=== PATIENT | female | born 1940 | race Caucasian/White ===

== ENCOUNTER 2021-10-22 14:32 | Observation (INO) | payer MEDICARE, OTHER ==
[2021-10-22 15:54] LABS: BLOOD UREA NITROGEN,BUN 30 mg/dL (7.0-18.0); CARBON DIOXIDE,CO2 22.8 mmol/L (21.0-32.0); CHLORIDE,CL 99 mmol/L (98-107); GLUCOSE RANDOM 114 mg/dL (74-106); POTASSIUM,K 4.7 mmol/L (3.5-5.1); SODIUM,NA 134 mmol/L (136-145)
[2021-10-22] MEDS ORDERED: Nitroglycerin 0.4 MG Tab.SL SL ONE (16:53)
[2021-10-22] MEDS: Aspirin 81 MG Tab.Chew PO SCH (17:05)
[2021-10-22] MEDS: Acetaminophen 325 MG Tab PO PRN (20:32)
[2021-10-23] MEDS: Acetaminophen 325 MG Tab PO PRN ×4 (00:56→13:31)
[2021-10-23] MEDS ORDERED: Omeprazole 20 MG Cap.CR PO SCH (07:30)
[2021-10-23] MEDS: Aspirin 81 MG Tab.Chew PO SCH (08:23)
[2021-10-23 08:25] LABS: CARBON DIOXIDE,CO2 25.1 mmol/L (21.0-32.0); POTASSIUM,K 4.6 mmol/L (3.5-5.1)
[2021-10-23] MEDS ORDERED: Atenolol 50 MG Tab PO SCH (09:00)
[2021-10-23] MEDS ORDERED: Warfarin 2.5 MG Tab PO SCH ×2 (14:00)
[2021-10-23] MEDS ORDERED: Warfarin Sliding Scale PO SCH (14:00)
[2021-10-27] MEDS ORDERED: Warfarin 2.5 MG Tab PO SCH (14:00)
== END 2021-10-23 15:45 | disposition home health service (06) ==
LOC: MW.ED 14:32 → MW.MS 17:02
PROVIDERS: ADMIT Internal Medicine; ATTEND Internal Medicine
DX: I48.91 Unspecified atrial fibrillation (principal); I25.10 Atherosclerotic heart disease of native coronary artery without angina pectoris; I25.2 Old myocardial infarction; K21.9 Gastro-esophageal reflux disease without esophagitis; M35.00 Sjogren syndrome, unspecified; Z88.8 Allergy status to other drugs, medicaments and biological substances; Z79.899 Other long term (current) drug therapy; Z79.01 Long term (current) use of anticoagulants; Z20.822 Contact with and (suspected) exposure to COVID-19
CPT/HCPCS: 36415; 71045; 80048; 80053; 81001; 83735; 83880; 84484; 85025; 85610; 93005; 93306; 99285; A9270; G0378; U0002; 93010; 99284

== ENCOUNTER 2022-12-01 12:57 | Inpatient (IN) | payer MEDICARE, OTHER ==
[2022-12-01 15:01] LABS: CARBON DIOXIDE,CO2 22.3 mmol/L (21.0-32.0); POTASSIUM,K 3.8 mmol/L (3.5-5.1)
[2022-12-01] MEDS ORDERED: Sodium Chloride 0.9% 1,000 ML IV ONE (16:25)
[2022-12-01 20:15] LABS: CORONAVIRUS COVID-19 NAA NEGATIVE (NEGATIVE); INFLUENZA A NAA NEGATIVE (NEGATIVE); INFLUENZA B NAA NEGATIVE (NEGATIVE)
[2022-12-01] MEDS ORDERED: cefTRIAXone 1 GM in Sodium Chloride 0.9% 50 ML IV SCH (21:45)
[2022-12-01] MEDS ORDERED: Enoxaparin 30 MG/0.3 ML Syringe SUBCUT SCH (22:00)
[2022-12-01] MEDS ORDERED: Sodium Chloride 0.9% 1,000 ML IV SCH ×2 (22:00→23:45)
[2022-12-01] MEDS ORDERED: Sodium Chloride 0.9% 50 ML ONE (22:18)
[2022-12-01] MEDS: Sodium Chloride 0.9% 1,000 ML IV SCH (23:44)
[2022-12-01] MEDS: Piperacillin/Tazobactam 3.375 GM in Sodium Chloride 0.9% 50 ML IV SCH (23:49)
[2022-12-02] MEDS ORDERED: Sodium Chloride 0.9% 1,000 ML IV SCH (00:45)
[2022-12-02] MEDS ORDERED: oxyCODONE 5 MG Tab ONE (03:11)
[2022-12-02] MEDS ORDERED: Sodium Chloride 0.9% 50 ML ONE (04:45)
[2022-12-02] MEDS: Piperacillin/Tazobactam 3.375 GM in Sodium Chloride 0.9% 50 ML IV SCH (04:56)
[2022-12-02] MEDS: Omeprazole 20 MG Cap.CR PO SCH (06:50)
[2022-12-02] MEDS: Sodium Chloride 0.9% 1,000 ML IV SCH ×2 (06:53→16:26)
[2022-12-02 06:59] LABS: CARBON DIOXIDE,CO2 19.9 mmol/L (21.0-32.0); POTASSIUM,K 4.2 mmol/L (3.5-5.1)
[2022-12-02] MEDS ORDERED: Sodium Chloride 0.9% 1,000 ML IV ONE (07:52)
[2022-12-02] MEDS: Acetaminophen 325 MG Tab PO PRN (08:14)
[2022-12-02] MEDS: CEVIMELINE 30 MG PO SCH ×3 (09:25→13:54)
[2022-12-02] MEDS ORDERED: Norepinephrine Bit/D5W Premix 250 ML IV SCH (10:15)
[2022-12-02] MEDS ORDERED: Piperacillin/Tazobactam 2.25 GM in Sodium Chloride 0.9% 50 ML IV SCH (12:00)
[2022-12-02] MEDS: Meropenem Premix 50 ML IV SCH (12:26)
[2022-12-02] MEDS ORDERED: Warfarin 2.5 MG Tab PO ONE (14:00)
[2022-12-02] MEDS: Warfarin Sliding Scale PO SCH (14:05)
[2022-12-02] MEDS: oxyCODONE 5 MG Tab PO PRN (17:20)
[2022-12-03] MEDS: CEVIMELINE 30 MG PO SCH ×4 (00:15→22:00)
[2022-12-03] MEDS: Meropenem Premix 50 ML IV SCH ×2 (00:17→11:17)
[2022-12-03] MEDS: Sodium Chloride 0.9% 1,000 ML IV SCH ×2 (00:17→08:45)
[2022-12-03] MEDS: oxyCODONE 5 MG Tab PO PRN ×3 (04:52→22:00)
[2022-12-03 07:19] LABS: CARBON DIOXIDE,CO2 16.7 mmol/L (21.0-32.0)
[2022-12-03] MEDS: Omeprazole 20 MG Cap.CR PO SCH (08:45)
[2022-12-03] MEDS: Warfarin Sliding Scale PO SCH (13:43)
[2022-12-03] MEDS ORDERED: Metoprolol Tartrate 5 MG/5 ML SDV IVPUSH ONE (16:30)
[2022-12-04] MEDS: Meropenem Premix 50 ML IV SCH ×3 (00:35→23:31)
[2022-12-04] MEDS: CEVIMELINE 30 MG PO SCH ×3 (06:46→23:34)
[2022-12-04] MEDS: Omeprazole 20 MG Cap.CR PO SCH (06:46)
[2022-12-04 06:55] LABS: CARBON DIOXIDE,CO2 17.8 mmol/L (21.0-32.0); POTASSIUM,K 4.2 mmol/L (3.5-5.1)
[2022-12-04] MEDS: oxyCODONE 5 MG Tab PO PRN ×2 (09:23→20:23)
[2022-12-04] MEDS: Lidocaine 5% 700 MG Patch TRDERM SCH (12:15)
[2022-12-04] MEDS: Metoprolol Tartrate 25 MG Tab PO SCH ×2 (12:17→20:23)
[2022-12-04] MEDS: Warfarin Sliding Scale PO SCH (13:32)
[2022-12-04] MEDS: Acetaminophen 325 MG Tab PO PRN (20:27)
[2022-12-05] MEDS: CEVIMELINE 30 MG PO SCH ×3 (05:42→21:55)
[2022-12-05 07:03] LABS: CARBON DIOXIDE,CO2 19.8 mmol/L (21.0-32.0); POTASSIUM,K 4.3 mmol/L (3.5-5.1)
[2022-12-05] MEDS: Omeprazole 20 MG Cap.CR PO SCH (07:17)
[2022-12-05] MEDS: Metoprolol Tartrate 25 MG Tab PO SCH ×2 (08:08→21:56)
[2022-12-05] MEDS: oxyCODONE 5 MG Tab PO PRN ×3 (08:12→20:01)
[2022-12-05] MEDS: Lidocaine 5% 700 MG Patch TRDERM SCH (11:06)
[2022-12-05] MEDS: Meropenem Premix 50 ML IV SCH ×2 (11:06→23:51)
[2022-12-05] MEDS: Acetaminophen 325 MG Tab PO PRN ×2 (12:13→23:51)
[2022-12-05] MEDS ORDERED: Warfarin 2.5 MG Tab PO ONE (14:00)
[2022-12-05] MEDS: Warfarin Sliding Scale PO SCH (14:10)
[2022-12-05] MEDS: Metoprolol Tartrate 5 MG/5 ML SDV IVPUSH PRN (20:20)
[2022-12-05] MEDS: cefTRIAXone 1 GM in Sodium Chloride 0.9% 50 ML IV SCH (22:04)
[2022-12-06] MEDS: oxyCODONE 5 MG Tab PO PRN ×5 (00:02→23:05)
[2022-12-06] MEDS: CEVIMELINE 30 MG PO SCH ×3 (06:25→21:03)
[2022-12-06] MEDS: Omeprazole 20 MG Cap.CR PO SCH ×2 (06:26→06:34)
[2022-12-06 06:44] LABS: CARBON DIOXIDE,CO2 20.7 mmol/L (21.0-32.0); POTASSIUM,K 4.6 mmol/L (3.5-5.1)
[2022-12-06] MEDS: Metoprolol Tartrate 25 MG Tab PO SCH ×2 (08:11→21:04)
[2022-12-06] MEDS: Lidocaine 5% 700 MG Patch TRDERM SCH (11:47)
[2022-12-06] MEDS: Meropenem Premix 50 ML IV SCH ×2 (12:09→23:06)
[2022-12-06] MEDS ORDERED: Warfarin 2.5 MG Tab PO ONE (14:00)
[2022-12-06] MEDS: Furosemide 20 MG Tab PO SCH (14:25)
[2022-12-06] MEDS: Warfarin Sliding Scale PO SCH (14:27)
[2022-12-06] MEDS: Acetaminophen 325 MG Tab PO PRN ×2 (18:01→23:06)
[2022-12-06] MEDS: cefTRIAXone 1 GM in Sodium Chloride 0.9% 50 ML IV SCH (23:06)
[2022-12-07] MEDS: Omeprazole 20 MG Cap.CR PO SCH ×2 (06:26→06:30)
[2022-12-07] MEDS: CEVIMELINE 30 MG PO SCH ×3 (06:27→22:55)
[2022-12-07 06:34] LABS: CARBON DIOXIDE,CO2 23.4 mmol/L (21.0-32.0); POTASSIUM,K 4.5 mmol/L (3.5-5.1)
[2022-12-07] MEDS: oxyCODONE 5 MG Tab PO PRN (08:50)
[2022-12-07] MEDS: Metoprolol Tartrate 25 MG Tab PO SCH ×2 (08:52→21:10)
[2022-12-07] MEDS: Furosemide 20 MG Tab PO SCH ×2 (08:52→21:10)
[2022-12-07] MEDS: Lidocaine 5% 700 MG Patch TRDERM SCH (11:05)
[2022-12-07] MEDS: oxyCODONE ER 10 MG TAB.ER PO SCH ×2 (11:08→21:12)
[2022-12-07] MEDS: Warfarin Sliding Scale PO SCH (13:48)
[2022-12-07] MEDS ORDERED: Warfarin 2 MG Tab PO ONE (14:00)
[2022-12-07] MEDS: Metoprolol Tartrate 5 MG/5 ML SDV IVPUSH PRN (17:14)
[2022-12-07] MEDS: cefTRIAXone 2 GM in Premix Bag 1 BAG IV SCH (17:24)
[2022-12-07] MEDS ORDERED: Magnesium Sulfate/Water 2 GM in Premix Bag 1 BAG IV ONE ×2 (20:03→21:00)
[2022-12-08] MEDS: Omeprazole 20 MG Cap.CR PO SCH ×2 (06:12→09:48)
[2022-12-08] MEDS: CEVIMELINE 30 MG PO SCH ×3 (06:12→21:07)
[2022-12-08] MEDS: Acetaminophen 325 MG Tab PO PRN (06:14)
[2022-12-08 06:36] LABS: CARBON DIOXIDE,CO2 27.7 mmol/L (21.0-32.0); POTASSIUM,K 4.3 mmol/L (3.5-5.1)
[2022-12-08] MEDS: Furosemide 20 MG Tab PO SCH ×2 (08:11→14:26)
[2022-12-08] MEDS: Metoprolol Tartrate 25 MG Tab PO SCH ×2 (08:12→21:10)
[2022-12-08] MEDS: oxyCODONE ER 10 MG TAB.ER PO SCH ×2 (08:13→21:09)
[2022-12-08] MEDS: Acetaminophen 325 MG Tab PO SCH ×3 (10:02→21:14)
[2022-12-08] MEDS: Lidocaine 5% 700 MG Patch TRDERM SCH (10:48)
[2022-12-08] MEDS ORDERED: Warfarin 2 MG Tab PO ONE (14:00)
[2022-12-08] MEDS: LYSINE HCL 1000 MG PO SCH ×2 (14:25→21:15)
[2022-12-08] MEDS: Warfarin Sliding Scale PO SCH (14:44)
[2022-12-08] MEDS: cefTRIAXone 2 GM in Premix Bag 1 BAG IV SCH (16:42)
[2022-12-09] MEDS: Acetaminophen 325 MG Tab PO SCH ×4 (04:55→21:36)
[2022-12-09] MEDS: LYSINE HCL 1000 MG PO SCH ×3 (06:26→21:39)
[2022-12-09] MEDS: CEVIMELINE 30 MG PO SCH ×3 (06:26→21:39)
[2022-12-09] MEDS: Omeprazole 20 MG Cap.CR PO SCH ×2 (06:27→08:42)
[2022-12-09 07:27] LABS: CARBON DIOXIDE,CO2 27.3 mmol/L (21.0-32.0); POTASSIUM,K 4.2 mmol/L (3.5-5.1)
[2022-12-09] MEDS: Furosemide 20 MG Tab PO SCH (08:42)
[2022-12-09] MEDS: Metoprolol Tartrate 25 MG Tab PO SCH ×2 (08:43→21:37)
[2022-12-09] MEDS: oxyCODONE ER 10 MG TAB.ER PO SCH ×2 (08:44→21:36)
[2022-12-09] MEDS: Lidocaine 5% 700 MG Patch TRDERM SCH (12:18)
[2022-12-09] MEDS ORDERED: Warfarin 2.5 MG Tab PO SCH (14:00)
[2022-12-09] MEDS: Warfarin Sliding Scale PO SCH (14:17)
[2022-12-09] MEDS: cefTRIAXone 2 GM in Premix Bag 1 BAG IV SCH (16:21)
[2022-12-10] MEDS: Acetaminophen 325 MG Tab PO SCH ×4 (04:01→22:07)
[2022-12-10 06:17] LABS: CARBON DIOXIDE,CO2 25.3 mmol/L (21.0-32.0); POTASSIUM,K 4.3 mmol/L (3.5-5.1)
[2022-12-10] MEDS: CEVIMELINE 30 MG PO SCH ×3 (06:56→22:07)
[2022-12-10] MEDS: Omeprazole 20 MG Cap.CR PO SCH (06:56)
[2022-12-10] MEDS: LYSINE HCL 1000 MG PO SCH ×3 (06:56→22:07)
[2022-12-10] MEDS: Metoprolol Tartrate 25 MG Tab PO SCH ×2 (08:51→20:47)
[2022-12-10] MEDS: oxyCODONE ER 10 MG TAB.ER PO SCH ×2 (08:55→20:48)
[2022-12-10] MEDS: Furosemide 20 MG Tab PO SCH (08:55)
[2022-12-10] MEDS: Lidocaine 5% 700 MG Patch TRDERM SCH (11:22)
[2022-12-10] MEDS: Warfarin Sliding Scale PO SCH (13:58)
[2022-12-10] MEDS ORDERED: Warfarin 2.5 MG Tab PO SCH (14:00)
[2022-12-10] MEDS ORDERED: cefTRIAXone 2 GM in Sodium Chloride 0.9% 100 ML IV SCH (16:15)
[2022-12-11] MEDS: Acetaminophen 325 MG Tab PO SCH ×2 (04:08→09:14)
[2022-12-11] MEDS: Omeprazole 20 MG Cap.CR PO SCH (06:40)
[2022-12-11] MEDS: CEVIMELINE 30 MG PO SCH (06:41)
[2022-12-11] MEDS: LYSINE HCL 1000 MG PO SCH (06:41)
[2022-12-11 06:44] LABS: CARBON DIOXIDE,CO2 23.2 mmol/L (21.0-32.0); POTASSIUM,K 4.4 mmol/L (3.5-5.1)
[2022-12-11] MEDS: oxyCODONE ER 10 MG TAB.ER PO SCH (09:14)
[2022-12-11] MEDS: Furosemide 20 MG Tab PO SCH (09:15)
[2022-12-11] MEDS: Metoprolol Tartrate 25 MG Tab PO SCH (09:15)
[2022-12-11] MEDS: Lidocaine 5% 700 MG Patch TRDERM SCH (11:17)
[2022-12-11] MEDS ORDERED: Warfarin 2 MG, Warfarin 1 MG PO SCH ×2 (14:00)
== END 2022-12-11 13:00 | disposition home health service (06) | DRG 871 ==
LOC: MW.ED 12:57 → MW.MS 18:52 → MW.ICU 20:27 → OBSVTOIN 21:54 → MW.MS 22:57 → MW.ICU 12-02 11:47 → MW.MS 12-05 13:45
PROVIDERS: ADMIT Internal Medicine; ATTEND Internal Medicine
DX: A41.51 Sepsis due to Escherichia coli [E. coli] (principal); N17.0 Acute kidney failure with tubular necrosis; R65.21 Severe sepsis with septic shock; N30.00 Acute cystitis without hematuria; E86.0 Dehydration; K21.9 Gastro-esophageal reflux disease without esophagitis; I25.10 Atherosclerotic heart disease of native coronary artery without angina pectoris; G89.29 Other chronic pain; M54.50 Low back pain, unspecified; Z91.041 Radiographic dye allergy status; M19.90 Unspecified osteoarthritis, unspecified site; M35.00 Sjogren syndrome, unspecified; Z87.891 Personal history of nicotine dependence; Z20.822 Contact with and (suspected) exposure to COVID-19; I10 Essential (primary) hypertension; I48.91 Unspecified atrial fibrillation; Z79.01 Long term (current) use of anticoagulants; Z79.899 Other long term (current) drug therapy; I25.2 Old myocardial infarction; Z59.00 Homelessness unspecified
CPT/HCPCS: 0240U; 36415; 71045; 71045-26; 74176; 74176-26; 80048; 81001; 82550; 83605; 83735; 84100; 85025; 85610; 87040; 87077; 87086; 87088; 87154; 87186; 96360; 97110-GP; 97116-GP; 97163-GP; 97530-GP; 99222; 99231; 99232; 99239; 99285; 99285-25; A9270-GY; J0696; J2185; J2543; J3475; J3490; J7030; J7050

== ENCOUNTER 2023-10-20 11:26 | Emergency (ER) | payer MEDICARE, OTHER ==
[2023-10-20] MEDS ORDERED: Sodium Chloride 0.9% Inhalation Soln 3 ML Neb INH PRN (11:56)
[2023-10-20] MEDS: Dexamethasone 10 MG/ML SDV IVPUSH ONE (12:14)
[2023-10-20] MEDS: Racepinephrine 2.25% 0.5 ML Neb Soln NEB ONE (12:14)
[2023-10-20 12:15] LABS: BASOPHILS ABSOLUTE AUTO 0.03 K/uL (0.00-0.20); BASOPHILS PERCENT AUTO 0.3 % (0.0-1.0); HEMATOCRIT 33.1 % (37.0-47.0); HEMOGLOBIN 11.2 g/dL (12.0-16.0); IMMATURE GRAN ABSOLUTE AUTO 0.16 K/uL (0.00-0.05); IMMATURE GRAN PERCENT AUTO 1.4 % (0.0-0.4); LYMPHOCYTES ABSOLUTE AUTO 0.72 K/uL (1.00-4.80); LYMPHOCYTES PERCENT AUTO 6.1 % (24.0-44.0); MEAN CORPUSCULAR HEMOGLOBIN 30.6 pg (28.0-32.0); MEAN CORPUSCULAR HGB CONC 33.8 g/dL (32.0-36.0); MEAN CORPUSCULAR VOLUME 90.4 fL (83.0-99.0); MEAN PLATELET VOLUME 8.8 fL (9.4-12.3); MONOCYTES ABSOLUTE AUTO 1.16 K/uL (0.00-0.80); MONOCYTES PERCENT AUTO 9.9 % (0.0-8.0); NEUTROPHILS ABSOLUTE AUTO 9.65 K/uL (1.80-7.70); NEUTROPHILS PERCENT AUTO 82.3 % (41.0-71.0); PLATELET COUNT,PLT 192 K/uL (150-400); RED BLOOD CELL COUNT 3.66 M/uL (4.10-5.30); WHITE BLOOD CELL COUNT,WBC 11.72 K/uL (3.9-11.3)
[2023-10-20] MEDS: Sodium Chloride 0.9% 2.5 ML Syringe FLUSH PRN (12:15)
[2023-10-20] MEDS: Dexamethasone 4 MG Tab PO ONE (12:15)
[2023-10-20] MEDS: Sodium Chloride 0.9% 10 ML Syringe FLUSH PRN (12:15)
[2023-10-20 12:29] LABS: INR 3.07 (0.86-1.11); PTT,PARTIAL THROMBOPLSTIN TIME 58.4 SEC (23.9-30.7)
[2023-10-20 12:41] LABS: A/G RATIO 0.6 (0.9-1.6); ALBUMIN 3.3 g/dL (3.4-5.0); BILIRUBIN TOTAL 1.1 mg/dL (0.2-1.0); CALCIUM 9.1 mg/dL (8.5-10.1); CARBON DIOXIDE,CO2 25.3 mmol/L (21.0-32.0); CREATININE 1.5 mg/dL (0.6-1.0); EST CRCL DRUG DOSING (CG) 23.09 mL/min; POTASSIUM,K 3.7 mmol/L (3.5-5.1); PROTEIN TOTAL,TP 8.6 g/dL (6.4-8.2)
[2023-10-20] MEDS ORDERED: Racepinephrine 2.25% 0.5 ML Neb Soln ONE (14:47)
== END 2023-10-20 16:01 ==
LOC: MW.ED 11:26
DX: R22.1 Localized swelling, mass and lump, neck (principal); M35.0C Sjogren syndrome with dental involvement; I48.11 Longstanding persistent atrial fibrillation; Z91.041 Radiographic dye allergy status; Z79.01 Long term (current) use of anticoagulants; Z79.899 Other long term (current) drug therapy; Z90.49 Acquired absence of other specified parts of digestive tract; Z90.710 Acquired absence of both cervix and uterus
CPT/HCPCS: 36415; 80053; 85025; 85610; 85730; 86850; 86900; 86901; 94640; 96374; 99285; J1100; J3490; 99291

== ENCOUNTER 2024-02-28 16:21 | Emergency (ER) | payer MEDICARE, OTHER ==
[2024-02-28 16:44] LABS: BASOPHILS ABSOLUTE AUTO 0.04 K/uL (0.00-0.20); BASOPHILS PERCENT AUTO 0.8 % (0.0-1.0); EOSINOPHILS ABSOLUTE AUTO 0.17 K/uL (0.00-0.45); EOSINOPHILS PERCENT AUTO 3.3 % (0.0-6.0); HEMATOCRIT 36.4 % (37.0-47.0); HEMOGLOBIN 11.7 g/dL (12.0-16.0); IMMATURE GRAN PERCENT AUTO 1.9 % (0.0-0.4); LYMPHOCYTES ABSOLUTE AUTO 0.73 K/uL (1.00-4.80); LYMPHOCYTES PERCENT AUTO 14.1 % (24.0-44.0); MEAN CORPUSCULAR HEMOGLOBIN 27.6 pg (28.0-32.0); MEAN CORPUSCULAR HGB CONC 32.1 g/dL (32.0-36.0); MEAN CORPUSCULAR VOLUME 85.8 fL (83.0-99.0); MEAN PLATELET VOLUME 8.7 fL (9.4-12.3); MONOCYTES ABSOLUTE AUTO 0.52 K/uL (0.00-0.80); MONOCYTES PERCENT AUTO 10.1 % (0.0-8.0); NEUTROPHILS PERCENT AUTO 69.8 % (41.0-71.0); PLATELET COUNT,PLT 316 K/uL (150-400); RED BLOOD CELL COUNT 4.24 M/uL (4.10-5.30); WHITE BLOOD CELL COUNT,WBC 5.16 K/uL (3.9-11.3)
[2024-02-28 16:59] LABS: INR 2.61 (0.86-1.11); PTT,PARTIAL THROMBOPLSTIN TIME 43.7 SEC (23.9-30.7)
[2024-02-28 17:15] LABS: A/G RATIO 0.5 (0.9-1.6); ALANINE AMINOTRANSFERASE,ALT 13 IU/L (14-63); ALBUMIN 2.6 g/dL (3.4-5.0); ALKALINE PHOSPHATASE 59 U/L (46-116); ASPARTATE AMNIOTRANSFERASE,AST 20 IU/L (15-37); BILIRUBIN TOTAL 0.4 mg/dL (0.2-1.0); BLOOD UREA NITROGEN,BUN 31 mg/dL (7.0-18.0); CALCIUM 8.7 mg/dL (8.5-10.1); CARBON DIOXIDE,CO2 27.1 mmol/L (21.0-32.0); CHLORIDE,CL 99 mmol/L (98-107); GLUCOSE RANDOM 118 mg/dL (74-106); LIPASE 69 U/L (16-77); MAGNESIUM 2.5 mg/dL (1.8-2.4); POTASSIUM,K 4.1 mmol/L (3.5-5.1); SODIUM,NA 135 mmol/L (136-145)
[2024-02-28 17:16] LABS: ESTIMATED GFR 24 mL/min (>60)
== END 2024-02-28 19:05 | disposition home or self-care (01) ==
LOC: MW.ED 16:21
DX: R07.9 Chest pain, unspecified (principal); Z91.041 Radiographic dye allergy status; Z79.01 Long term (current) use of anticoagulants; Z79.899 Other long term (current) drug therapy; Z75.8 Other problems related to medical facilities and other health care; Z90.49 Acquired absence of other specified parts of digestive tract; Z90.710 Acquired absence of both cervix and uterus
CPT/HCPCS: 36415; 71045; 71045-26; 80053; 83690; 83735; 84484; 85025; 85610; 85730; 93005; 99285

== ENCOUNTER 2024-04-28 16:45 | Observation (INO) | payer MEDICARE, OTHER ==
[2024-04-28 17:16] LABS: BASOPHILS ABSOLUTE AUTO 0.02 K/uL (0.00-0.20); BASOPHILS PERCENT AUTO 0.2 % (0.0-1.0); HEMATOCRIT 32.6 % (37.0-47.0); HEMOGLOBIN 11.1 g/dL (12.0-16.0); IMMATURE GRAN PERCENT AUTO 2.5 % (0.0-0.4); LYMPHOCYTES ABSOLUTE AUTO 0.58 K/uL (1.00-4.80); LYMPHOCYTES PERCENT AUTO 7.2 % (24.0-44.0); MEAN CORPUSCULAR HEMOGLOBIN 29.8 pg (28.0-32.0); MEAN CORPUSCULAR VOLUME 87.4 fL (83.0-99.0); MEAN PLATELET VOLUME 8.8 fL (9.4-12.3); MONOCYTES ABSOLUTE AUTO 0.72 K/uL (0.00-0.80); MONOCYTES PERCENT AUTO 8.9 % (0.0-8.0); NEUTROPHILS ABSOLUTE AUTO 6.55 K/uL (1.80-7.70); NEUTROPHILS PERCENT AUTO 81.2 % (41.0-71.0); PLATELET COUNT,PLT 245 K/uL (150-400); RED BLOOD CELL COUNT 3.73 M/uL (4.10-5.30); WHITE BLOOD CELL COUNT,WBC 8.07 K/uL (3.9-11.3)
[2024-04-28 17:23] LABS: INR 2.33 (0.86-1.11)
[2024-04-28 17:39] LABS: ALBUMIN 2.9 g/dL (3.4-5.0); BILIRUBIN TOTAL 0.7 mg/dL (0.2-1.0); CALCIUM 9.1 mg/dL (8.5-10.1); CARBON DIOXIDE,CO2 26.9 mmol/L (21.0-32.0); CREATININE 1.7 mg/dL (0.6-1.0); EST CRCL DRUG DOSING (CG) 20.01 mL/min; POTASSIUM,K 4.1 mmol/L (3.5-5.1); PROTEIN TOTAL,TP 8.2 g/dL (6.4-8.2)
[2024-04-28 17:44] LABS: A/G RATIO 0.6 (0.9-1.6)
[2024-04-28] MEDS ORDERED: Naloxone 0.4 MG/ML SDV IVPUSH PRN (18:03)
[2024-04-28] MEDS: Sodium Chloride 0.9% 500 ML IV SCH (18:17)
[2024-04-28] MEDS: Morphine 2 MG/ML SYRINGE IVPUSH ONE (18:19)
[2024-04-28] MEDS: Sodium Chloride 0.9% 10 ML Syringe FLUSH PRN (19:16)
[2024-04-28] MEDS: Sodium Chloride 0.9% 2.5 ML Syringe FLUSH PRN (19:16)
[2024-04-28] MEDS: Furosemide 40 MG/4 ML VIAL IVPUSH ONE (19:16)
[2024-04-29 06:45] LABS: INR 2.44 (0.86-1.11)
[2024-04-29 07:43] LABS: A/G RATIO 0.6 (0.9-1.6); ALBUMIN 2.7 g/dL (3.4-5.0); BILIRUBIN TOTAL 0.8 mg/dL (0.2-1.0); CALCIUM 8.9 mg/dL (8.5-10.1); CREATININE 1.6 mg/dL (0.6-1.0); EST CRCL DRUG DOSING (CG) 21.26 mL/min; POTASSIUM,K 3.7 mmol/L (3.5-5.1); PROTEIN TOTAL,TP 7.6 g/dL (6.4-8.2)
[2024-04-29 07:47] LABS: BASOPHILS ABSOLUTE AUTO 0.04 K/uL (0.00-0.20); BASOPHILS PERCENT AUTO 0.5 % (0.0-1.0); HEMATOCRIT 31.6 % (37.0-47.0); HEMOGLOBIN 10.6 g/dL (12.0-16.0); IMMATURE GRAN ABSOLUTE AUTO 0.17 K/uL (0.00-0.05); IMMATURE GRAN PERCENT AUTO 2.3 % (0.0-0.4); LYMPHOCYTES ABSOLUTE AUTO 0.58 K/uL (1.00-4.80); LYMPHOCYTES PERCENT AUTO 7.7 % (24.0-44.0); MEAN CORPUSCULAR HEMOGLOBIN 29.4 pg (28.0-32.0); MEAN CORPUSCULAR HGB CONC 33.5 g/dL (32.0-36.0); MEAN CORPUSCULAR VOLUME 87.5 fL (83.0-99.0); MONOCYTES ABSOLUTE AUTO 0.77 K/uL (0.00-0.80); MONOCYTES PERCENT AUTO 10.2 % (0.0-8.0); NEUTROPHILS ABSOLUTE AUTO 5.99 K/uL (1.80-7.70); NEUTROPHILS PERCENT AUTO 79.3 % (41.0-71.0); PLATELET COUNT,PLT 216 K/uL (150-400); RED BLOOD CELL COUNT 3.61 M/uL (4.10-5.30); WHITE BLOOD CELL COUNT,WBC 7.55 K/uL (3.9-11.3)
[2024-04-29] MEDS: Pantoprazole 40 MG Tab.CR PO SCH (08:00)
[2024-04-29] MEDS: oxyCODONE ER 10 MG TAB.ER PO SCH (09:43)
[2024-04-29] MEDS ORDERED: Warfarin 2.5 MG Tab PO SCH (14:00)
[2024-04-29] MEDS ORDERED: Warfarin Sliding Scale PO SCH (14:00)
[2024-05-01] MEDS ORDERED: Warfarin 2.5 MG Tab PO SCH (14:00)
== END 2024-04-29 13:12 | disposition home or self-care (01) ==
LOC: MW.ED 16:45 → MW.MS 19:20
PROVIDERS: ADMIT Internal Medicine; ATTEND Internal Medicine
DX: I50.33 Acute on chronic diastolic (congestive) heart failure (principal); Z87.891 Personal history of nicotine dependence; Z79.899 Other long term (current) drug therapy; Z91.041 Radiographic dye allergy status
CPT/HCPCS: 36415; 71045; 71250; 80053; 83690; 83880; 84484; 85025; 85610; 93005; 96361; 96374; 96375; 99285; A9270; J1940; J2270; J3490; J7040; 99284; G0378

== ENCOUNTER 2024-05-07 23:30 | Inpatient (IN) | payer MEDICARE, OTHER ==
[2024-05-07] MEDS ORDERED: Nitroglycerin 0.4 MG Tab.SL SL PRN (23:42)
[2024-05-08 00:16] LABS: BASE EXCESS VENOUS 0.3 (-2.0-3.0); BICARBONATE,VENOUS 25 mEQ/mL (22-28); PCO2 VENOUS 37 mmHG (41-51); PH,VENOUS 7.43 (7.31-7.41); PO2 VENOUS < 30 mmHG (35-45)
[2024-05-08 00:19] LABS: BASOPHILS ABSOLUTE AUTO 0.04 K/uL (0.00-0.20); BASOPHILS PERCENT AUTO 0.4 % (0.0-1.0); HEMATOCRIT 28.8 % (37.0-47.0); HEMOGLOBIN 9.6 g/dL (12.0-16.0); IMMATURE GRAN ABSOLUTE AUTO 0.33 K/uL (0.00-0.05); IMMATURE GRAN PERCENT AUTO 3.1 % (0.0-0.4); LYMPHOCYTES ABSOLUTE AUTO 0.51 K/uL (1.00-4.80); LYMPHOCYTES PERCENT AUTO 4.7 % (24.0-44.0); MEAN CORPUSCULAR HEMOGLOBIN 29.8 pg (28.0-32.0); MEAN CORPUSCULAR HGB CONC 33.3 g/dL (32.0-36.0); MEAN CORPUSCULAR VOLUME 89.4 fL (83.0-99.0); MONOCYTES ABSOLUTE AUTO 1.01 K/uL (0.00-0.80); MONOCYTES PERCENT AUTO 9.4 % (0.0-8.0); NEUTROPHILS ABSOLUTE AUTO 8.86 K/uL (1.80-7.70); NEUTROPHILS PERCENT AUTO 82.4 % (41.0-71.0); PLATELET COUNT,PLT 287 K/uL (150-400); RED BLOOD CELL COUNT 3.22 M/uL (4.10-5.30); WHITE BLOOD CELL COUNT,WBC 10.75 K/uL (3.9-11.3)
[2024-05-08] MEDS: cefTRIAXone 2 GM in Sodium Chloride 0.9% 50 ML IV ONE (00:27)
[2024-05-08] MEDS: Sodium Chloride 0.9% 10 ML Syringe FLUSH PRN (00:28)
[2024-05-08 00:29] LABS: INR 2.26 (0.86-1.11)
[2024-05-08 00:59] LABS: A/G RATIO 0.6 (0.9-1.6); ALBUMIN 2.7 g/dL (3.4-5.0); BILIRUBIN TOTAL 0.6 mg/dL (0.2-1.0); CALCIUM 8.7 mg/dL (8.5-10.1); CARBON DIOXIDE,CO2 25.6 mmol/L (21.0-32.0); CREATININE 1.7 mg/dL (0.6-1.0); EST CRCL DRUG DOSING (CG) 20.01 mL/min; MAGNESIUM 2.5 mg/dL (1.8-2.4); POTASSIUM,K 4.3 mmol/L (3.5-5.1); PROTEIN TOTAL,TP 7.4 g/dL (6.4-8.2)
[2024-05-08] MEDS: Acetaminophen 500 MG Tab PO ONE (01:09)
[2024-05-08] MEDS: Azithromycin 500 MG in Sodium Chloride 0.9% 250 ML IV ONE (01:12)
[2024-05-08 01:21] LABS: CORONAVIRUS COVID-19 NAA NEGATIVE (NEGATIVE); INFLUENZA A NAA NEGATIVE (NEGATIVE); INFLUENZA B NAA NEGATIVE (NEGATIVE); RESPIRATORY SYNCYTIAL VIR NAA NEGATIVE (NEGATIVE)
[2024-05-08 01:22] LABS: APPEARANCE,URINE SLT CLOUDY; BILIRUBIN,URINE NEGATIVE (NEGATIVE); COLOR,URINE YELLOW; GLUCOSE,URINE NEGATIVE (NEGATIVE); KETONES,URINE NEGATIVE (NEGATIVE); LEUKOCYTE ESTERASE,URINE SMALL (NEGATIVE); NITRITE,URINE NEGATIVE (NEGATIVE); OCCULT BLOOD,URINE NEGATIVE (NEGATIVE); PROTEIN,URINE NEGATIVE (NEGATIVE); UROBILINOGEN,URINE 0.2 EU/dL (<2.0)
[2024-05-08 01:30] LABS: BACTERIA,URINE 1+ (NEGATIVE); EPITHELIAL CELLS,URINE FEW (NONE-FEW); RBC,URINE 0-2 (0-2/HPF)
[2024-05-08] MEDS ORDERED: Ondansetron 4 MG/2 ML SDV IVPUSH PRN (02:36)
[2024-05-08] MEDS ORDERED: Melatonin 3 MG Tab PO PRN (02:36)
[2024-05-08] MEDS ORDERED: Acetaminophen 650 MG Supp RECTAL PRN (02:36)
[2024-05-08] MEDS ORDERED: Albuterol/Ipratropium 3.0-0.5 MG/3 ML Neb Soln NEB PRN (02:36)
[2024-05-08] MEDS ORDERED: Polyethylene Glycol 3350 Powder 17 GM Packet PO PRN (02:36)
[2024-05-08] MEDS ORDERED: cefTRIAXone 2 GM in Sodium Chloride 0.9% 50 ML IV SCH ×2 (02:45→22:00)
[2024-05-08] MEDS ORDERED: Azithromycin 500 MG in Sodium Chloride 0.9% 250 ML IV SCH (02:45)
[2024-05-08 06:01] LABS: HEMOGLOBIN 9.2 g/dL (12.0-16.0); MEAN CORPUSCULAR HEMOGLOBIN 29.1 pg (28.0-32.0); MEAN CORPUSCULAR HGB CONC 32.9 g/dL (32.0-36.0); MEAN CORPUSCULAR VOLUME 88.6 fL (83.0-99.0); MEAN PLATELET VOLUME 9.3 fL (9.4-12.3); PLATELET COUNT,PLT 255 K/uL (150-400); RED BLOOD CELL COUNT 3.16 M/uL (4.10-5.30); WHITE BLOOD CELL COUNT,WBC 10.01 K/uL (3.9-11.3)
[2024-05-08 06:14] LABS: CARBON DIOXIDE,CO2 27.7 mmol/L (21.0-32.0); CREATININE 1.8 mg/dL (0.6-1.0); EST CRCL DRUG DOSING (CG) 18.9 mL/min; MAGNESIUM 2.5 mg/dL (1.8-2.4); POTASSIUM,K 4.6 mmol/L (3.5-5.1)
[2024-05-08] MEDS: Acetaminophen 325 MG Tab PO PRN (07:35)
[2024-05-08] MEDS: Furosemide 40 MG/4 ML VIAL IVPUSH ONE (11:11)
[2024-05-08] MEDS ORDERED: Metoprolol Tartrate 5 MG/5 ML SDV IVPUSH PRN ×2 (12:31→16:15)
[2024-05-08] MEDS: Metoprolol Tartrate 5 MG/5 ML SDV IVPUSH ONE (13:24)
[2024-05-08] MEDS: Pantoprazole 40 MG Tab.CR PO SCH (13:47)
[2024-05-08] MEDS: Warfarin Sliding Scale PO SCH (13:47)
[2024-05-08] MEDS: Warfarin 2.5 MG Tab PO ONE (13:47)
[2024-05-08] MEDS: DILTIAZEM 60 MG PO SCH (13:48)
[2024-05-08] MEDS ORDERED: Warfarin 2.5 MG Tab PO ONE (14:00)
[2024-05-08] MEDS: Diltiazem 120 MG Cap.CD PO SCH (14:21)
[2024-05-08] MEDS: Furosemide 40 MG/4 ML VIAL IVPUSH SCH (17:06)
[2024-05-08] MEDS: Levalbuterol HCl 0.63 MG/3 ML Neb NEB ONE (17:06)
[2024-05-08 17:22] LABS: PCO2 ARTERIAL 23 mmHG (35-45)
[2024-05-08 17:23] LABS: BICARBONATE,ARTERIAL 18 mEq/L (22-26); PO2 ARTERIAL 60 mmHG (80-105)
[2024-05-08] MEDS: oxyCODONE ER 10 MG TAB.ER PO SCH (19:06)
[2024-05-08] MEDS ORDERED: Nitroglycerin 0.4 MG Tab.SL SL PRN (20:39)
[2024-05-08] MEDS ORDERED: Scopalamine 1mg/3day Transdermal Patch TRDERM ONE (21:00)
[2024-05-08] MEDS ORDERED: Furosemide 20 MG/2 ML VIAL IVPUSH SCH (21:00)
[2024-05-08] MEDS: Morphine 10 MG/0.5 ML Oral Syringe PO PRN (21:30)
[2024-05-08] MEDS: LORazepam 2 MG/ML SDV IVPUSH PRN (21:30)
[2024-05-09] MEDS ORDERED: Azithromycin 500 MG in Sodium Chloride 0.9% 250 ML IV SCH
[2024-05-09 13:04] LABS: INR 2.95 (0.86-1.11)
[2024-05-09] MEDS ORDERED: Warfarin 2.5 MG Tab PO ONE (14:00)
[2024-05-10] MEDS: Morphine 10 MG/0.5 ML Oral Syringe PO SCH (11:52)
[2024-05-10] MEDS: HYDROmorphone 1 MG/ML Syringe IVPUSH PRN (15:34)
[2024-05-11] MEDS ORDERED: Naloxone 0.4 MG/ML SDV IVPUSH PRN (08:45)
[2024-05-11] MEDS: HYDROmorphone 1 MG/ML Syringe IVPUSH SCH ×2 (10:06→12:46)
[2024-05-11] MEDS: Morphine 10 MG/0.5 ML Oral Syringe PO SCH (13:33)
[2024-05-11] MEDS ORDERED: Ondansetron 4 MG/2 ML SDV IVPUSH PRN (14:18)
[2024-05-14] MEDS ORDERED: Morphine 100 MG/5 ML (15 ML) Oral Solution PRN (00:48)
[2024-05-14] MEDS ORDERED: Morphine 100 MG/5 ML (15 ML) Oral Solution SL PRN (01:14)
[2024-05-14] MEDS: Morphine 10 MG/0.5 ML Oral Syringe ONE (02:00)
[2024-05-14] MEDS: Morphine 10 MG/0.5 ML Oral Syringe SL PRN (02:59)
[2024-05-14] MEDS: LORazepam ORAL Concentrate 1MG/0.5ML U/D PO PRN (07:45)
[2024-05-14] MEDS: HYDROmorphone 1 MG/ML Syringe IVPUSH SCH (08:25)
[2024-05-15] MEDS ORDERED: HYDROmorphone 1 MG/ML Syringe IVPUSH PRN (14:51)
[2024-05-15] MEDS: LORazepam 2 MG/ML SDV IVPUSH PRN (15:05)
[2024-05-15] MEDS ORDERED: HYDROmorphone 2 MG/ML Syringe IVPUSH SCH (22:15)
[2024-05-16] MEDS ORDERED: HYDROmorphone 2 MG/ML Syringe IVPUSH PRN (08:26)
[2024-05-16] MEDS: HYDROmorphone 2 MG/ML Syringe IVPUSH SCH (09:02)
[2024-05-16] MEDS ORDERED: Morphine 10 MG/0.5 ML Oral Syringe SL PRN (13:25)
[2024-05-17] MEDS: Atropine 1% Ophth Soln 5 ML Bottle SL PRN (05:35)
[2024-05-17] MEDS: HYDROmorphone 2 MG/ML Syringe IVPUSH SCH (09:11)
[2024-05-17] MEDS: LORazepam 2 MG/ML SDV IVPUSH PRN (10:52)
[2024-05-17] MEDS: Scopalamine 1mg/3day Transdermal Patch TRDERM PRN (11:02)
[2024-05-17] MEDS: HYDROmorphone 2 MG/ML Syringe IVPUSH PRN (12:09)
[2024-05-17] MEDS: Morphine 4 MG/ML Syringe IVPUSH ONE ×2 (13:56→14:49)
== END 2024-05-17 16:00 | disposition expired | DRG 193 ==
LOC: MW.ED 23:30 → UNDOADMIN 05-08 01:56 → MW.MS 05-08 01:56 → UNDODISIN 05-17 16:00
PROVIDERS: ADMIT Emergency Medicine; ATTEND Nurse Practitioner Family
PROC: 4A033R1 Measurement of Arterial Saturation, Peripheral, Percutaneous Approach (ICD-10-PCS; principal; 2024-05-07)
DX: J18.9 Pneumonia, unspecified organism (principal); J90 Pleural effusion, not elsewhere classified; I50.9 Heart failure, unspecified; R06.02 Shortness of breath; I50.33 Acute on chronic diastolic (congestive) heart failure; I31.39 Other pericardial effusion (noninflammatory); I48.11 Longstanding persistent atrial fibrillation; N30.00 Acute cystitis without hematuria; I31.4 Cardiac tamponade; Z66 Do not resuscitate; Z51.5 Encounter for palliative care; Z75.8 Other problems related to medical facilities and other health care; H40.9 Unspecified glaucoma; I25.10 Atherosclerotic heart disease of native coronary artery without angina pectoris; K44.9 Diaphragmatic hernia without obstruction or gangrene; Z88.8 Allergy status to other drugs, medicaments and biological substances; Z79.01 Long term (current) use of anticoagulants; Z90.89 Acquired absence of other organs; Z86.16 Personal history of COVID-19; Z90.710 Acquired absence of both cervix and uterus; Z79.899 Other long term (current) drug therapy; Z91.048 Other nonmedicinal substance allergy status; Z90.49 Acquired absence of other specified parts of digestive tract; Z91.041 Radiographic dye allergy status
CPT/HCPCS: 0241U; 36415; 36600; 71045; 71250; 74176; 80048; 80053; 81001; 82803; 82947; 83735; 83880; 84484; 85025; 85027; 85610; 87040; 87899; 93005; 94640; 96365; 96375; 99285; 93010; 99223; 99232; 99233; 99238; A9270-GY; J0456; J0696; J1170; J1940; J2060; J2270; J3490; J7050